=== PATIENT | female | born 1970 | race Caucasian/White ===

== ENCOUNTER 2022-11-02 12:55 | Emergency (ER) | payer SELFPAY ==
[~2022-11-02] VITALS: Ht 157.5 cm; Wt 106.3 kg
[2022-11-02 12:59] VITALS: BP 101/86
--- NOTE | 2022-11-02 13:05 | NUR ---
PT AMB TO BED 11.
--- NOTE | 2022-11-02 13:08 | NUR ---
52/F WALKED IN C/O MIDSTERNAL CHEST PAIN ONSET TODAY. DENIES NONRADIATING AT THIS TIME. DENIES DIZZINESS, NVD, OR WEAKNESS AT THIS TIME. AAO4, AMBULATORY, VITALS STABLE, EKG DONE.
--- NOTE | 2022-11-02 13:25 | NUR ---
X-Ray at bedside.
[2022-11-02 13:53] LABS: BASOPHILS % (AUTO) 0.2 % (0.0-2.0); EOSINOPHILS % (AUTO) 0.4 % (0.0-4.0); HEMATOCRIT 38.9 % (36-48); HEMOGLOBIN 12.8 g/dL (12.0-16.0); LYMPHOCYTES # (AUTO) 2.6 K/uL (2.5-16.5); LYMPHOCYTES % (AUTO) 22.7 % (20.5-51.1); MEAN CORPUSCULAR HEMOGLOBIN 26 pg (27-31); MEAN CORPUSCULAR HGB CONC 33 g/dL (33-37); MEAN CORPUSCULAR VOLUME 78.5 fL (80-94); MONOCYTES # (AUTO) 0.6 K/uL (0.8-1.0); NEUTROPHILS # (AUTO) 8.1 K/uL (1.8-7.7); NEUTROPHILS % (AUTO) 71.7 % (42.2-75.2); PLATELET COUNT (AUTO) 375 K/uL (140-450); RED BLOOD CELL COUNT(AUTO) 4.96 MIL/uL (4.20-5.40); RED CELL DISTRIBUTION WIDTH 16.3 % (11.6-13.7); WHITE BLOOD COUNT (AUTO) 11.3 K/uL (4.8-10.8)
[2022-11-02 14:05] LABS: ALBUMIN 3.4 g/dL (3.4-5.0); ANION GAP 10.9 (8-16); CARBON DIOXIDE 30.4 mmol/L (21-32); CREATININE 0.7 mg/dL (0.6-1.3); POTASSIUM 4.3 mmol/L (3.5-5.1); TOTAL BILIRUBIN 0.3 mg/dL (0.0-1.0)
[2022-11-02 15:00] VITALS: BP 139/86
--- NOTE | 2022-11-02 15:40 | NUR ---
repeat troponin drawn by auto clutch rebuilder
[2022-11-02] MEDS ORDERED: AZITHROMYCIN 250 MG TAB PO ONE (15:50)
[2022-11-02] MEDS ORDERED: AZIT250T4 PO (15:53)
[2022-11-02] MEDS ORDERED: ACETAMINOPHEN EXTRA STRENGTH 500 MG TAB ONE (15:59)
[2022-11-02] MEDS ORDERED: ACETAMINOPHEN EXTRA STRENGTH 500 MG TAB PO ONE (16:00)
== END 2022-11-02 16:00 | disposition home or self-care (01) ==
LOC: MED 12:55
DX: J18.9 Pneumonia, unspecified organism (principal); I10 Essential (primary) hypertension; Z79.899 Other long term (current) drug therapy
CPT/HCPCS: 36415; 71045; 80053; 81025; 83880; 84484; 85025; 93005; 99285; Q0092